=== PATIENT | female | born 1975 | race Caucasian/White ===

== ENCOUNTER 2019-01-30 08:30 | Emergency (ER) | payer OTHER ==
[~2019-01-30] VITALS: Ht 157.5 cm; Wt 77.1 kg
--- NOTE | 2019-01-30 08:42 | NUR ---
DARI ARELLANO AT BEDSIDE FOR MSE.
[2019-01-30] MEDS ORDERED: IV NORMAL SALINE 1000 ML BAG IV ONE (08:45)
[2019-01-30] MEDS ORDERED: ONDANSETRON 4 MG/2 ML VIAL IV ONE (08:45)
[2019-01-30 09:00] LABS: BASOPHILS # (AUTO) 0.1 K/uL (0.0-8.0); BASOPHILS % (AUTO) 0.5 % (0.0-2.0); EOSINOPHILS # (AUTO) 0.6 K/uL (0.0-0.7); EOSINOPHILS % (AUTO) 5.6 % (0.0-7.0); HEMATOCRIT 40.2 % (31.2-41.9); HEMOGLOBIN 13.7 g/dL (10.9-14.3); LYMPHOCYTES % (AUTO) 10.4 % (20.5-51.5); MEAN CORPUSCULAR HEMOGLOBIN 27.4 uug (24.7-32.8); MEAN CORPUSCULAR HGB CONC 34 g/dL (32.3-35.6); MEAN CORPUSCULAR VOLUME 80.3 fL (75.5-95.3); MONOCYTES # (AUTO) 0.5 K/uL (2.0-10.0); MONOCYTES % (AUTO) 5.2 % (0.0-11.0); NEUTROPHILS # (AUTO) 7.8 K/uL (1.8-8.9); NEUTROPHILS % (AUTO) 78.3 % (38.5-71.5); PLATELET COUNT (AUTO) 185 K/uL (179-408)
[2019-01-30] MEDS ORDERED: ONDANSETRON 4 MG/2 ML VIAL ONE (09:02)
[2019-01-30 09:06] LABS: CARBON DIOXIDE 23 mmol/L (21-32); CHLORIDE 106 mmol/L (98-107); CREATININE 0.8 mg/dL (0.6-1.3); GLUCOSE 101 mg/dL (74-106); POTASSIUM 3.9 mmol/L (3.5-5.1); UREA NITROGEN, BLOOD 20 mg/dL (7-18)
[2019-01-30 09:11] LABS: ALANINE AMINOTRANSFERASE 39 U/L (14-59); ALKALINE PHOSPHATASE 88 U/L (50-136); ASPARTATE AMINOTRANSFERASE 20 U/L (15-37); BILIRUBIN,DIRECT 0.1 mg/dL (0.0-0.2); BILIRUBIN,TOTAL 0.6 mg/dL (0.2-1.0); LIPASE 243 U/L (73-393); TOTAL PROTEIN, SERUM 7.7 g/dL (6.4-8.2)
--- NOTE | 2019-01-30 09:43 | NUR ---
Patient discharged to home in stable conditon. Written and verbal after care instructions given. Patient verbalizes understanding of instructions. ALL BELONGINGS W/ PT. PT SELF-AMBULATED W/O DIFFICULTY.
[2019-01-30 09:44] VITALS: BP 116/70
== END 2019-01-30 09:44 | disposition home or self-care (01) ==
LOC: ER 08:30
DX: B34.9 Viral infection, unspecified (principal); R11.2 Nausea with vomiting, unspecified
CPT/HCPCS: 36415; 71045; 80048; 80076; 83690; 84702; 85025; 86403; 87070; 96361; 96374; 99284; J2405; A4663; J7030

== ENCOUNTER 2021-08-29 15:37 | Emergency (ER) | payer OTHER ==
[~2021-08-29] VITALS: Ht 160 cm; Wt 72.6 kg
--- NOTE | 2021-08-29 15:48 | NUR ---
at bedside to examine pt.
--- NOTE | 2021-08-29 16:28 | NUR ---
Dcd instructions provided to pt. who verbalized understangin. pt. left room AAOx4 ambulatory with steady gait.
== END 2021-08-29 16:56 | disposition home or self-care (01) ==
LOC: ER 15:40
DX: M79.5 Residual foreign body in soft tissue (principal); M79.671 Pain in right foot
CPT/HCPCS: 73630; A4663

== ENCOUNTER 2022-05-14 15:38 | Emergency (ER) | payer OTHER ==
[~2022-05-14] VITALS: Ht 160 cm; Wt 81.6 kg
--- NOTE | 2022-05-14 16:03 | NUR ---
[email or web address], medical screening exam in progress
[2022-05-14] MEDS ORDERED: CARB-277 EACH EAR (16:09)
--- NOTE | 2022-05-14 16:19 | NUR ---
Patient discharged to home in stable condition with brisk steady gait. Written and verbal after care instructions given. Patient verbalized understanding and compliance of instructions. Stressed follow up with primary doctor or return to ER for worsening s/s.
== END 2022-05-14 16:19 | disposition home or self-care (01) ==
LOC: ER 16:07
DX: H61.22 Impacted cerumen, left ear (principal)
CPT/HCPCS: A4663